=== PATIENT | male | born 1995 | race Caucasian/White ===

== ENCOUNTER 2018-09-18 08:27 | Emergency (ER) | payer OTHER ==
--- NOTE | 2018-09-18 09:12 | EDPHY ---
H & P Time Seen by Provider: 09/18/18 08:50 HPI/ROS: CHIEF COMPLAINT: Suicidal ideation HISTORY OF PRESENT ILLNESS: Patient is a 23-year-old male who presents emergency department on an M1 hold by police. Per report, the patient drank alcohol and took LSD last evening. He made suicidal ideation comments to his girlfriend. At this time the patient denies suicidality. Patient denies intentional self-harm. He has no complaints at this time. REVIEW OF SYSTEMS: 10 systems were reveiwed and are negative with the exception of the elements mentioned in the history of present illness. Past Medical/Surgical History: Includes rectal fissure The past surgical history: Rectal fissure repair Smoking Status: Never smoked Physical Exam: Vitals noted GENERAL: Well-appearing, in no acute distress, alert. HEENT: Eyes normal to inspection, normal pharynx, no signs of dehydration. NECK: Normal, supple. RESPIRATORY: Clear to auscultation bilaterally, no rales, rhonchi or wheezing. CVS: Regular rate and rhythm, no rubs, murmurs, or gallops. ABDOMEN: Soft, nontender, nondistended, no organomegaly. BACK: Normal to inspection, no CVA tenderness. SKIN: Normal color, no rash, warm, dry. No pallor. EXTREMITIES: No pedal edema, no calf tenderness, no Homans sign or cords, no joint swelling. NEURO/PSYCH: Alert and oriented, normal mood and affect, normal motor sensory exam. No obvious cranial nerve deficit. Constitutional: Initial Vital Signs Temperature (C) 36.4 C 09/18/18 08:53 Heart Rate 97 09/18/18 08:53 Respiratory Rate 18 09/18/18 08:53 Blood Pressure 133/75 H 09/18/18 08:53 O2 Sat (%) 97 09/18/18 08:53 O2 Delivery Mode Room Air Medical Decision Making ED Course/Re-evaluation: In the emergency department I discussed possible etiologies with the patient. I answered all his questions. I discussed the fact the patient was on a mental health hold from police. The patient had laboratory studies ordered. He will be evaluated by Psychiatric Services. Patient was stable during his stay. [facility] evaluated the patient. They felt the hold could be lifted. Patient was given warnings prior to leaving. Will return with worsening symptoms. Differential Diagnosis: My differential includes but is not limited to depression, anxiety, drug abuse, alcohol abuse, suicidal ideation, psychosis - Data Points Laboratory Results: Laboratory Results 09/18/18 08:41 09/18/18 08:41 09/18/18 09/18/18 09/18/18 10:21 08:41 08:41 WBC 4.26 10^3/uL 10^3/uL (3.80-9.50) RBC 5.50 10^6/uL 10^6/uL (4.40-6.38) Hgb 17.1 g/dL g/dL (13.7-17.5) Hct 48.0 % % (40.0-51.0) MCV 87.3 fL fL (81.5-99.8) MCH 31.1 pg pg (27.9-34.1) MCHC 35.6 g/dL g/dL (32.4-36.7) RDW 11.9 % % (11.5-15.2) Plt Count 189 10^3/uL 10^3/uL (150-400) MPV 9.2 fL fL (8.7-11.7) Neut % (Auto) 38.7 % L % (39.3-74.2) Lymph % (Auto) 49.3 % H % (15.0-45.0) Sullivan % (Auto) 8.0 % % (4.5-13.0) Eos % (Auto) 3.1 % % (0.6-7.6) Baso % (Auto) 0.9 % % (0.3-1.7) Nucleat RBC Rel Count 0.0 % % (0.0-0.2) Absolute Neuts (auto) 1.65 10^3/uL L 10^3/uL (1.70-6.50) Absolute Lymphs (auto) 2.10 10^3/uL 10^3/uL (1.00-3.00) Absolute Monos (auto) 0.34 10^3/uL 10^3/uL (0.30-0.80) Absolute Eos (auto) 0.13 10^3/uL 10^3/uL (0.03-0.40) Absolute Basos (auto) 0.04 10^3/uL 10^3/uL (0.02-0.10) Absolute Nucleated RBC 0.00 10^3/uL 10^3/uL (0-0.01) Immature Gran % 0.0 % % (0.0-1.1) Immature Gran # 0.00 10^3/uL 10^3/uL (0.00-0.10) Sodium 140 mEq/L mEq/L (135-145) Potassium 4.3 mEq/L mEq/L (3.5-5.2) Chloride 110 mEq/L mEq/L (97-110) Carbon Dioxide 20 mEq/l L mEq/l (22-31) Anion Gap 10 mEq/L mEq/L (6-14) BUN 9 mg/dL mg/dL (7-23) Creatinine 1.0 mg/dL mg/dL (0.7-1.3) Estimated GFR > 60 Glucose 86 mg/dL mg/dL (70-100) Calcium 9.0 mg/dL mg/dL (8.5-10.4) Salicylates < 1.0 mg/dL L mg/dL (2.0-20.0) Urine Opiates Screen NEGATIVE (NEGATIVE) Acetaminophen < 10 mcg/mL L mcg/mL (10-30) Urine Barbiturates NEGATIVE (NEGATIVE) Ur Phencyclidine Scrn NEGATIVE (NEGATIVE) Ur Amphetamine Screen NEGATIVE (NEGATIVE) U Benzodiazepines Scrn NEGATIVE (NEGATIVE) Urine Cocaine Screen NEGATIVE (NEGATIVE) U Marijuana (THC) Screen NON-NEGATIVE H (NEGATIVE) Ethyl Alcohol 168 mg/dL H mg/dL (0-10) Departure - Departure Disposition: Home, Routine, Self-Care Clinical Impression: Polysubstance abuse Condition: Good Instructions: Polysubstance Abuse (ED) Additional Instructions: Return with worsening symptoms or any other concerns. Referrals: Aleyda Martinez MD [Medical Doctor] - 5-7 days, if not improved
[2018-09-18 09:15] LABS: PLATELET COUNT 189 10^3/uL (150-400)
[2018-09-18 14:15] VITALS: BP 122/78
--- NOTE | 2018-09-18 14:18 | ASMTTCLDSP ---
TLC Discharge Disposition Disposition: Answers: Discharge If Answers: Yes DISCHARGED: Patient/family given suicide hotline info & [employer]HSA brochure? Disposition Notes: Notes: In consultation with [facility] ED physician, Sho Vega MD, and on-call psychiatrist, Bill Archer MD, both concurred that pt does not appear to meet 27-65 criteria requiring psychiatric hospitalization as pt does not appear to be an imminent risk of harm to self/others/gravely disabled due to a mental illness condition. Dr. Archer provided telephone order read back vacating M1 hold at 13:45 hours Discharge Concerns/Recommendations: Notes: Pt was offered voluntary mental health admission yet pt declined. Pt stated commitment or ability to keep self safe, denied thoughts of self harm or harm to others. Pt expressed a desire to f/u with [facility]S program for outpt. counseling. Psychiatrist vacating M1 Dr Bill Archer Hold: Date and time M1 hold 09/18/2018 01:45 PM vacated (time format is hh:mm): Type of Hold: Answers: /72-hour Hold Hold initiated by: Answers: Police Date Signed: 09/18/2018 02:18 PM Electronically Signed By:Rose Marie Reddy
--- NOTE | 2018-09-18 15:24 | ASMTTLCEVL ---
TLC Evaluation - Basic Information Evaluation Start Date and 09/18/2018 12:10 PM Time Hospital Status Answers: M1 Hold 72-hr M1 Hold Start Date 09/18/2018 08:15 AM and Time Patient statement Notes: Me and my girlfriend were in an argument. She called 911 after she thought I made a suicide statement. I feel is was a miscommunication. I don't want to kill myself. I have too much to live for, plus I would never do that to my family, that would be horrible. I did not take any LSD like my girlfriend said. I don't want to kill myself. Narrative Notes: Pt is a 23 year old, single, male who was brought to the [facility] ED on a M1 hold after it was reported pt. had made a suicidal statement to his girlfriend while he was intoxicated. His girlfriend called 911 and pt. was placed on a M1 hold by police due to his statement of suicide. Pt's BAL level at 10:21 was .168. Pt admitted to drinking but was unable to report on when his last drink occurred. Pt's utox was also positive for marijuana. Pt denied other substance use including report from girlfriend that pt had used LSD. Pt continued to deny suicide thoughts or intent throughout the interview. Per ED report pt presents to the ED on a M1 hold by police. Per report, the pt drank alcohol and took LSD last evening. He made suicidal ideation comments to his girlfriend. At this time the pt. denies suicidality. Pt denies self harm. He has no complaints at this time. Pt had initially presented as alert and orientated, normal mood and affect, normal motor sensory exam. Diagnosis History Notes: Pt reported a hx of depression in high school which included past SI and a hospitalization. Pt denied experiencing any symptoms of depression throughout college years but did admit to some self medicating. Prior suicide attempts Notes: Pt has a hx of strong SI while in high school. One incident was when he hung a belt from the ceiling but did not follow up with an attempt. This situation however did lead to an inpt admission at [facility] while he was a Senior in . Prior hospitalizations Notes: Pt has a hx of a hospitalization and involvement in an IOP program while a Senior in High School. This hospitalizatoin was due to SI with an intent but no follow through. It was recommended pt. follow up with medications but after his discharge he had refused medication follow up. Treatment Responses Notes: Pt has no hx of treatment follow up. History of violence Notes: Pt gave no hx of violence either as a victim or towards others. Therapist: None Psychiatrist: None Medications (name, dosage, route, freq uency) Notes: No prescribed medications. Allergies/Reaction Notes: None identified. Sleep Notes: Pt denied any sleep problems reporting sleeping about 6-7 hours a night. Appetite Notes: Pt denied any appetitie or weight changes. Medical/Surgical history Notes: No medical problems were identified. Substance use history (frequency, intensity, his tory, duration) Notes: Pt stated he had his 1st drink at age 19. During this time he started a pattern of drinking a few times a week. Pt reports episodes of drinking to intoxication a few times a month and reports a hx of blackouts. Pt also gave a hx of other substance abuse, primarily marijuana, 1st use at the age of 17. Pt's marijuana use has been on and off at times abstaining and other periods of using on a daily basis. Pt recently reported he uses marijuana a few times a week. Pt also reported in high school he experimented with other drugs including LSD, cocaine and oxycodone. Pt denied any other substance use/abuse except alcohol and marijuana since starting college. Family composition Notes: Pt has 2 brothers and 1 sister. His parents are . Need for family Answers: Yes participation in patient's care Family psychiatric/substance abuse history Notes: Pt has a maternal uncle and grandfather who have a hx of depression. There also is a paternal uncle with a hx of alcoholism. Developmental history Notes: There was no report of any developmental delays including no childhood dx of ADD or ADHD. Pt denied any hx of childhood physical, emotional or sexual abuse. Mother reported pt has a hx of 3 concussions as a result of snow boarding. Abuse concerns Answers: None Marital status/children Notes: Pt is single with no children. Living situation Notes: Pt lives in a [place] off of the [facility]. Sexual history/orientation Notes: Pt is heterosexual with a girlfriend. Peer support/family strengths Notes: Pt appears to have a large social network through school and his fraternity Education level/history Notes: Pt is a Viral in the [employer] at [employer]. It was reported pt.'s is doing well academically. 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 Notes: No hx. Legal Notes: No report of any legal problems on record however pt. did indicate he had to complete some education and community service when he was arrested for carrying a false license while under age. Taoism/Spiritual Notes: Pt stated he believes in something of a higher being. He attended a [employer]. Leisure Notes: Pt enjoys spending time with friends, is a [employer] of his fraternity enjoys snowboarding and hiking. Collateral Notes: Collateral inform was obtained from pt.'s mother which was included in this evaluation. Mother expressed agreement of pt's discharge and did not feel pt. was a suicide risk. Patient's strengths Answers: Athletic (Please select at least TWO strengths): Honest Intelligent Responsible/Dependable Supportive Family TLC Evaluation - Mental Status Exam Appearance: Answers: Appropriate Clean Eye Contact: Answers: Good/Direct Mood: Answers: Euthymic Affect: Answers: Appropriate Apprehensive Calm Behavior: Answers: Appropriate Cooperative Speech: Answers: Relevant Logical Clear Coherent Thought Process: Answers: Organized Oriented Alert Intact Insight: Answers: Fair Judgement: Answers: Fair Manic Signs/Symptoms Answers: Impulsivity Hallucinations: Answers: None Pt reported to have Answers: No suicidal/self-injuring ideation/behavior? Pt reported to be making Answers: No suicidal/self-injuring threats? Pt reported to have Answers: No aggression/assault ideation/behavior? Pt reported to be making Answers: No aggression/assault threats? Pt exhibits inability to Answers: No care for self/grave disability? Patient has a specific Answers: No plan? History of Answers: Yes suicidal/self-injuring ideation, behavior, or threats? History of Answers: No aggressive/assaultive ideation, behavior, or threats? History of serious Answers: No physical harm to self/others while in treatment setting? TLC Evaluation - Suicide/Homicide Risk Suicide Risk Factors: Answers: Alcohol/Heavy Drug Use None Current Suicidal Answers: No Ideation? Current Suicidal Ideation Answers: No in the Past 48 Hours? Current Suicidal Ideation Answers: No in the Past Month? Suicide Internal Answers: Absence of Psychosis Protective Factors: Frustration Tolerance Taoism Beliefs Other Notes: Belief system Suicide External Answers: Social Support Protective Factors: Other Notes: Family Ranking of patient's Answers: Low suicidal risk: Ranking of patient's Answers: Low homicidal risk: TLC Evaluation - Wrap-up BDI Total Score: 0 BDI Question #2 Score: 0 BDI Question #9 Score: 0 BSS Total Score: 0 AXIS I Diagnosis (include DSM-V and ICD-10 codes), must also be entered in [employer], which is the source of truth. Notes: Alcohol Intoxication, with use disorder, moderate/severe 303.00 (F10.229) Alcohol Use Disorder, moderate 303.90 (F10.20) Cannabis Use Disorder, moderate 304.30 (F12.20) In consultation with [facility] ED physician, Sho Vega MD, and on-call psychiatrist, Bill Archer MD, both concurred that pt does not appear to meet 27-65 criteria requiring psychiatric hospitalization as pt does not appear to be an imminent risk of harm to self/others/gravely disabled due to a mental illness condition. Dr. Archer provided telephone order read back vacating hold at 13:45 hours Pt was offered voluntary mental health admission yet pt declined. Pt stated commitment or ability to keep self safe, denied thoughts of self harm or harm to others. Pt expressed a desire to f/u with [facility] CAPS program for outpt. counseling. Pt was given local hotline information and [facility] brochure After an Attempt and encouraged to follow up with CAPS program. Evaluation End Date and 09/18/2018 03:20 PM Time (HH:WESLEY): Date Signed: 09/18/2018 03:23 PM Electronically Signed By:Rose Marie Reddy
== END 2018-09-18 14:16 | disposition home or self-care (01) ==
DX: F19.10 Other psychoactive substance abuse, uncomplicated (principal)
CPT/HCPCS: 80305; G0480